=== PATIENT | male | born 1960 | race Caucasian/White ===

== ENCOUNTER → 2024-05-10 11:02 | Outpatient (REF) | payer OTHER, SELFPAY | LOC: HWRAD 11:02 | PROVIDERS: ATTENDING PHYSICIAN Family Medicine | DX: E04.1 Nontoxic single thyroid nodule (principal) | CPT/HCPCS: 76536 ==

== ENCOUNTER → 2024-06-12 09:35 | Outpatient (REF) | payer OTHER, SELFPAY ==
[2024-06-12 10:29] VITALS: BP 125/83; BP_SYST 73
== END ==
LOC: RADI 09:35
PROVIDERS: ATTENDING PHYSICIAN Specialist
DX: E04.1 Nontoxic single thyroid nodule (principal)
CPT/HCPCS: 88173; 10005

== ENCOUNTER → 2024-06-25 10:00 | Outpatient (REF) | payer OTHER, SELFPAY | LOC: RAD 10:00 | PROVIDERS: ATTENDING PHYSICIAN Specialist; FAMILY PHYSICIAN Family Medicine | DX: R31.9 Hematuria, unspecified (principal) | CPT/HCPCS: 74178; Q9967 ==